=== PATIENT | male | born 1965 | race Hispanic/Latino ===

== ENCOUNTER 2021-04-24 20:55 | Emergency (ER) | payer OTHER, MEDICARE ==
[~2021-04-24] VITALS: Ht 172.7 cm; Wt 106.6 kg
[~2021-04-24 20:55] MED LIST: AMLO1TAB15 PO; ATEN100T PO; CELE100C97 PO; CYCL10TA7 PO; FENO145T26 PO; HYDR100T27 PO; HYDR50TA PO; NITR0.4T SL; RISP3TAB63 PO; SERT-440 PO; SIMV40TA59 PO; TAMS0.4C32 PO; TRAM50TA4 PO; TYL3 PO
[2021-04-24 21:00] VITALS: BP 148/86
[2021-04-24] MEDS ORDERED: MELO7.5T12 PO (23:26)
[2021-04-24] MEDS ORDERED: LIDOP TP (23:26)
[2021-04-24] MEDS ORDERED: ORPH-43 PO (23:26)
[2021-04-24] MEDS ORDERED: KETOROLAC 60 MG VIAL (30MG/ML) IM ONE (23:30)
[2021-04-24] MEDS ORDERED: LIDOCAINE 5% TOPICAL PATCH TP ONE ×2 (23:30→23:32)
[2021-04-24] MEDS ORDERED: KETOROLAC 60 MG VIAL (30MG/ML) ONE (23:32)
[2021-04-24 23:42] VITALS: BP 138/82
== END 2021-04-24 23:49 | disposition home or self-care (01) ==
LOC: EDH 20:55
DX: M62.838 Other muscle spasm (principal); M25.511 Pain in right shoulder; M54.6 Pain in thoracic spine; I10 Essential (primary) hypertension; E78.00 Pure hypercholesterolemia, unspecified; Z98.890 Other specified postprocedural states; Z79.899 Other long term (current) drug therapy
CPT/HCPCS: 96372; 99283; J1885

== ENCOUNTER → 2023-01-03 | Outpatient (CLI) | payer OTHER, MEDICARE ==
[~2023-01-03] MED LIST changes: +CYCL-309 PO; -CYCL10TA7 PO; +LIDOP TP; +MELO7.5T12 PO; +ORPH-43 PO
[2023-01-03 16:07] LABS: ALBUMIN 3.9 g/dL (3.5-5.0); CREATININE 1.4 mg/dL (0.5-1.5); POTASSIUM 3.9 mmol/L (3.5-5.1); TOTAL PROTEIN, SERUM 6.8 g/dL (6.0-8.3)
== END | disposition home or self-care (01) ==
LOC: LAB 14:17
PROVIDERS: ATTEND Student in an Organized Health Care Education/Training Program
DX: I10 Essential (primary) hypertension (principal)
CPT/HCPCS: 36415; 80053

== ENCOUNTER → 2023-01-06 | Outpatient (CLI) | payer OTHER, MEDICARE ==
[~2023-01-06] MED LIST changes: +IOHEXOL 350 MG/ML 100ML INFUS..BTL IV ONE
== END | disposition home or self-care (01) ==
LOC: RAH 10:00
PROVIDERS: ATTEND Student in an Organized Health Care Education/Training Program
DX: R07.9 Chest pain, unspecified (principal)
CPT/HCPCS: 75574; Q9967

== ENCOUNTER → 2023-01-26 | Outpatient (CLI) | payer OTHER, MEDICARE ==
[~2023-01-26] MED LIST changes: -IOHEXOL 350 MG/ML 100ML INFUS..BTL IV ONE; -ORPH-43 PO; +ORPH100T4 PO
== END | disposition home or self-care (01) ==
LOC: SHCH 14:36
PROVIDERS: ATTEND Student in an Organized Health Care Education/Training Program
DX: I11.9 Hypertensive heart disease without heart failure (principal); R07.9 Chest pain, unspecified; E78.5 Hyperlipidemia, unspecified
CPT/HCPCS: 93306

== ENCOUNTER 2023-12-19 22:02 | Emergency (ER) | payer OTHER, MEDICARE ==
[~2023-12-19] VITALS: Ht 172.7 cm; Wt 104.3 kg
[~2023-12-19 22:02] MED LIST changes: +CELE-146 PO; -CELE100C97 PO
[2023-12-20 00:03] LABS: APPEARANCE,URINE CLEAR (CLEAR); BILIRUBIN,URINE NEGATIVE (NEGATIVE); COLOR,URINE LIGHT-YELLOW (YELLOW); GLUCOSE, URINE (UA) NEGATIVE (NEGATIVE); KETONES,URINE NEGATIVE (NEGATIVE); LEUKOCYTE ESTERASE ,URINE NEGATIVE Leu/uL (NEGATIVE); NITRATE,URINE NEGATIVE (NEGATIVE); OCCULT BLOOD,URINE NEGATIVE (NEGATIVE); PH,URINE 5.5 (5.0-8.0); PROTEIN,URINE 20 mg/dL (NEGATIVE); UROBILINOGEN,URINE 0.2 mg/dL (0.2-1.0)
[2023-12-20 00:05] LABS: ADD UA MICROSCOPIC YES; RBC,URINE 0-1 /HPF (0-1); WBC,URINE 0-1 /HPF (0-1)
[2023-12-20] MEDS: KETOROLAC 30MG VIAL (30MG/ML) IM ONE (03:12)
[2023-12-20 04:57] VITALS: BP 155/83; PULSE 68; RESP 18; O2SAT 97
== END 2023-12-20 05:01 | disposition home or self-care (01) ==
LOC: EDH 22:02
DX: M47.22 Other spondylosis with radiculopathy, cervical region (principal); M25.511 Pain in right shoulder; I10 Essential (primary) hypertension; E78.00 Pure hypercholesterolemia, unspecified; Z79.899 Other long term (current) drug therapy; Z98.890 Other specified postprocedural states
CPT/HCPCS: 99285; 81001; 72125; 96372; J1885